=== PATIENT | female | born 1980 ===

== ENCOUNTER 2025-03-15 06:24 | Day surgery (SDC) | payer BC, SELFPAY | END 2025-03-15 11:41 | disposition home or self-care (01) | LOC: GI 06:24 | PROVIDERS: ATTENDING PHYSICIAN Internal Medicine; FAMILY PHYSICIAN Family Medicine | DX: Z12.11 Encounter for screening for malignant neoplasm of colon (principal); D12.3 Benign neoplasm of transverse colon; D12.4 Benign neoplasm of descending colon; D12.5 Benign neoplasm of sigmoid colon; K62.89 Other specified diseases of anus and rectum | CPT/HCPCS: 45385; 45380; 88305; 93005 ==